=== PATIENT | female | born 1970 | race Caucasian/White ===

== ENCOUNTER 2016-09-21 11:58 | Emergency (ER) | payer OTHER ==
[~2016-09-21] VITALS: Ht 162.6 cm; Wt 115.9 kg
[~2016-09-21 11:58] MED LIST: BENTYL10 MG PO; BENTYL20 MG PO; BUTALB-APAP-CA1 EACH; CIMZIA400 MG/2 M; DEXILANT60 MG PO; DILAUDID4 MG PO; DURAGESIC50 MCG TD; FIORICET 50-321 EAC1 PO; FOLIC ACID0.8 MG PO; GABAPENTIN300 MG PO; GABAPENTIN600 MG PO; GLUCOPHAGE XR,500 MG; KLONOPIN0.5 M1 PO; LIDODERM 5% P1 PATCH PO; LIDODERM 5% P1 PATCH TD; LOPRESSOR100 MG PO; LOVASTATIN40 MG PO; METHOTREXATE2.5 M1 PO; MIRENA52 MG IY; NUVARING VAGIN1 EACH PO; NUVIGIL150 MG PO; PREDNISONE10 MG PO; PRILOSEC40 MG PO; PRINZIDE 20-121 EACH PO; PROZAC40 MG PO; SENNA8.6 MG PO; SENOKOT S,PE1 TABLET PO; SYMBICORT60 INHALA1 IH; TIZANIDINE HCL2 M1 PO; VENTOLIN17 GM IH; ZANAFLEX2 MG PO
[2016-09-21 14:33] LABS: HEMATOCRIT 37.7 % (36.0-46.0); MCH 29.9 PG (29.0-34.0); MCHC 31.8 G/DL (30.0-36.0); MEAN PLAT.VOLUME 9.3 uM^3 (9.5-12.4); PLATELET COUNT 289 K/uL (156-360); RBC DIS.WIDTH-CV 13.7 % (11.8-14.6); RBC DIS.WIDTH-SD 46.6 % (39-53); RED BLOOD COUNT 4.01 M/uL (3.80-5.20); WHITE BLOOD COUNT 7.3 K/uL (4.1-10.2)
[2016-09-21 14:44] LABS: CHLORIDE 100 mEq/L (99-109); SODIUM 139 mEq/L (136-147)
[2016-09-21 14:45] LABS: GLUCOSE 143 mg/dL (70-99)
[2016-09-21 14:47] LABS: ANION GAP 9 MEQ/L (2-14)
[2016-09-21 14:49] LABS: GFR ESTIMATE (CALCULATED) > 59 mL/min/
[2016-09-21 14:50] LABS: UREA NITROGEN (BUN) 12 mg/dL (9-23)
[2016-09-21 16:06] VITALS: BP 102/64
== END 2016-09-21 16:07 | disposition home or self-care (01) ==
LOC: EME 11:58
PROVIDERS: Nurse Practitioner Family
DX: R60.0 Localized edema (principal); R06.00 Dyspnea, unspecified; Z98.890 Other specified postprocedural states; Z96.619 Presence of unspecified artificial shoulder joint; I10 Essential (primary) hypertension; E11.9 Type 2 diabetes mellitus without complications; E66.9 Obesity, unspecified; Z79.52 Long term (current) use of systemic steroids; Z68.41 Body mass index [BMI] 40.0-44.9, adult
CPT/HCPCS: 71020; 80048; 83880; 85027; 93971; 99281; 99284

== ENCOUNTER 2018-03-10 09:50 | Day surgery (SDC) | payer OTHER ==
[~2018-03-10] VITALS: Ht 165.1 cm; Wt 114.0 kg
[~2018-03-10 09:50] MED LIST changes: +ERGOCALCIF50000 UNIT PO; +FENTANYL1 EA12 TD; +HYDROCHLOROTHIA25 MG PO; +INVOKANA300 MG PO; +METHOTREXATE2.5 MG PO; +METOPROLOL SUCC50 MG PO; +MIRALAX17 GM PO; +MORPHINE SULFAT15 MG PO; +PRAVASTATIN SOD40 MG PO; +VALACYCLOVIR500 MG PO; +VENTOLIN HFA18 GM IH
== END 2018-03-10 16:50 | disposition home or self-care (01) ==
LOC: CATH 09:50
PROVIDERS: Internal Medicine Cardiovascular Disease
DX: Z01.810 Encounter for preprocedural cardiovascular examination (principal); R94.39 Abnormal result of other cardiovascular function study; M17.0 Bilateral primary osteoarthritis of knee; E11.9 Type 2 diabetes mellitus without complications; I10 Essential (primary) hypertension; E78.5 Hyperlipidemia, unspecified; E66.3 Overweight; Z68.41 Body mass index [BMI] 40.0-44.9, adult; Z87.891 Personal history of nicotine dependence; Z88.0 Allergy status to penicillin; Z88.2 Allergy status to sulfonamides; Z88.6 Allergy status to analgesic agent
CPT/HCPCS: 82948; C1769; C1887; J1200; J1644; J2250; J3010; J7040